=== PATIENT | female | born 1980 | race Caucasian/White ===

== ENCOUNTER 2021-01-13 08:35 | Emergency (ER) | payer BC ==
[2021-01-13 08:46] VITALS: BP 131/80
[2021-01-13] MEDS ORDERED: ORPHENADRINE 60 MG/2 ML (NORFLEX) AMP (ED ONLY) IM STA (09:01)
[2021-01-13] MEDS ORDERED: KETOROLAC 60 MG/2 ML VIAL IM STA (09:01)
--- NOTE | 2021-01-13 09:07 | ED Back Pain ---
General Chief Complaint: Back Problems Stated Complaint: LOW BACK PAIN Nursing Triage Note: Patient reports lower back pain for 2-3 weeks, states the pain started after she took down her Halloween decorations. She denies any previous history of back pain. She reports she tripped and fell over her dog earlier this week, which she feels aggravated the pain. She reports the pain was worse today and that she is having muscle spasms as well. Source of Information: Patient History of Present Illness Date Seen by Provider: Jan 13, 2021 Time Seen by Provider: 08:39 Initial Comments 40-year-old female presenting with complaints of low back pain and muscle spasms across her low back. She states this initially started a few weeks ago and she thinks she may have pulled or strained something when taking a Halloween decorations. She denied any history of any prior injuries or problems with her back. She had improvement in her symptoms by taking anti-inflammatories and using avar-tqt-kizspzn pain patches. However this last week her pain had come back and gotten worse throughout the week. She also had tripped and fell over her dog at the beginning of the week. When this happened she did fall back and hit her back on the concrete porch. She denies any numbness or tingling into her legs. She has had no weakness in her legs. She denies any pain or burning with urination. She has had no loss of control of her bowel or bladder. She does have increased pain with trying to lift her legs when she is laying down. She reports this morning it took her over 20 minutes to get up out of bed because her back was hurting so much. She had made her arms fall asleep and go numb overnight because of laying on them with trying to get a position where her back was not hurting. She had not seen her regular provider during her episodes of pain and she initially thought it was a pulled muscle and might get better. And it did get better with her bisd-dks-rofpueg treatment until this last week and the holiday prevented her from being able to be seen. Today with it being so bad that she had difficulty getting out of bed she decided she needed to be evaluated to see what else might be causing her to have such severe pain. Location: Lumbar Spine, Paraspinous Muscles Timing/Duration: Getting Worse Severity: Severe Pain/Injury Location: Back (across her low back and lumbar area) Radiation: Buttocks (left more than right) Method of Injury: Unknown (no specific injury initially, but was taking down Halloween decorations at beginning of the month when pain started. Then had fall when tripped over her dog a week ago when the pain started to worsen again, after it had improved with OTC treatment) Modifying Factors: Improves With Cold Therapy; Worse With Movement; Improves With Pain Medication, Improves With Rest Associated Symptoms: muscle spasms; No fever, No weakness, No numbness in legs/feet, No tingling in legs/feet, No sensory/motor loss; lower back pain; No loss of bladder control, No loss of bowel control Allergies and Home Medications Allergies Coded Allergies: morphine (Verified Allergy, Unknown, 01/13/21) Patient Home Medication List Home Medication List Reviewed: Yes Hydrocodone/Acetaminophen (Hydrocodone-Acetamin 5-325 mg) 1 Each Tablet, 1 TAB PO Q4H PRN for PAIN-SEVERE (8-10) Prescribed by: JEISON LOPEZ on 01/13/21 0957 Methocarbamol (Methocarbamol) 750 Mg Tablet, 1,500 MG PO TID PRN for MUSCLE SPASMS Prescribed by: JEISON LOPEZ on 01/13/21 0957 Prednisone (Prednisone) 20 Mg Tab, 40 MG PO DAILY Prescribed by: JEISON LOPEZ on 01/13/21 0957 Review of Systems Constitutional: No chills, No fever EENTM: no symptoms reported Respiratory: no symptoms reported Cardiovascular: no symptoms reported Gastrointestinal: no symptoms reported Genitourinary: see HPI Musculoskeletal: see HPI Skin: no symptoms reported Psychiatric/Neurological: See HPI Past Lfuufsi-Kbhfuh-Vhnnua Hx Patient Social History Tobacco Use?: No Past Medical History Surgeries: Yes Section Respiratory: No Cardiac: No Neurological: No Psychosocial: Yes Depression Physical Exam Vital Signs Vital Signs - First Documented 01/13/21 08:46 Temp 36.7 Pulse 105 Resp 16 B/P (MAP) 131/80 (97) Pulse Ox 100 O2 Delivery Room Air Capillary Refill : Less Than 3 Seconds Height, Weight, BMI Height: '" Weight: lbs. oz. kg; BMI Method: General Appearance: WD/WN, Mild Distress HEENT: PERRL/EOMI, Pharynx Normal Neck: Full Range of Motion, Normal Inspection, Non Tender, Supple Cardiovascular: Regular Rate, Rhythm, Normal Peripheral Pulses Respiratory: Chest Non Tender, Lungs Clear, Normal Breath Sounds, No Accessory Muscle Use, No Respiratory Distress Gastrointestinal: Normal Bowel Sounds, No Pulsatile Mass, Non Tender, Soft Back: No CVA Tenderness, Muscle Spasm (low lumbar spine bilaterally left greater than right), Vertebral Tenderness (low lumbar spine, no step off or crepitus), Other (pain with SLR right side at 45 degrees, improved with knee flexion. pain with SLR left side at 30 degrees, no improvement with knee flexion) Extremity: Normal Capillary Refill, Normal Inspection, No Pedal Edema Neurologic/Psychiatric: Alert, Oriented x3, No Motor/Sensory Deficits, single resource boss II- XII Norm as Tested, Other (DTR symmetrical 2/4 patellar and achilles bilaterally) Skin: Normal Color, Warm/Dry Progress/Results/Core Measures Results/Orders My Orders Orders - JEISON LOPEZ MD Ketorolac Injection (Toradol Injection) (01/13/21 09:01) Orphenadrine Inj (Ed Only) (Norflex Inje (01/13/21 09:01) Lumbar Spine 2 Or 3 View (01/13/21 09:21) Vital Signs/I&O 01/13/21 08:46 Temp 36.7 Pulse 105 Resp 16 B/P (MAP) 131/80 (97) Pulse Ox 100 O2 Delivery Room Air Blood Pressure Mean: 97 Progress Progress Note #1: Progress Note Will obtain x-rays of the lumbar spine to evaluate alignment and look for compression fractures. With her having spasms in the muscles and pain across the low back will try a Toradol shot and Norflex shot to help with muscle spasm and inflammation and pain. Patient does have prescriptions for Percocet and a Medrol Dosepak that she is to start Thursday when she goes to see Dr. Nguyen in [place] for oral surgery. Counseled on being careful with use of muscle relaxers at the same time as narcotics as they will increase the sedation effect. Depending on the imaging studies, could start steroids for next 2 days until she starts the Medrol Dosepak from oral surgeon. Prescribe muscle relaxer and narcotic pain medicine to help with severe pain until she starts medicines from Oral surgeon. Advised she may need physical therapy prescribed by her pcp or follow up for continued pain and problems. Progress Note #2: Time: 09:46 Progress Note Xrays of lumbar spine do not show any acute compression fracture or alignment issue. Will proceed with muscle relaxer to help with spasms, steroids for 2 days until she starts her Medrol Dosepak. Use narcotic for severe pain and to help her rest. Continue with the Salonpas patches that she has been using. Follow- up with her regular provider this week as well about her pain as they may need to physical therapy or additional imaging if she is not having improvement. Diagnostic Imaging Diagonstic Imaging: Xray Plain Films/CT/US/NM/MRI: other (lumbar spine) Comments NAME: DAISY ASH MED REC#: [id number] PT STATUS: REG ER : 1980 PHYSICIAN: JEISON LOPEZ MD ADMIT DATE: 01/13/21/ER FS Draft Date of Exam:01/13/21 LUMBAR SPINE 2 OR 3 VIEW EXAMINATION: Lumbosacral spine 2 or 3 views HISTORY: low back pain with spasm, radiation left buttock>right buttock COMPARISON: None available. FINDINGS: Normal height and alignment of the vertebral bodies is noted with no subluxations or fractures appreciated. Intervertebral disc spaces appear preserved. Soft tissues unremarkable. IMPRESSION: No acute process. Dictated on workstation # [id number] Dict: 01/13/2141 Trans: 01/13/21 0943 [facility] [id number] Interpreted by: GERSON SALINAS MD Electronically signed by: Reviewed: Reviewed by Me Departure Impression Primary Impression: Acute myofascial strain of lumbar region Qualified Codes: S39.012A - Strain of muscle, fascia and tendon of lower back, initial encounter Additional Impression: Acute lumbar back pain Qualified Codes: M54.50 - Low back pain, unspecified Disposition: 01 HOME, SELF-CARE Condition: Stable Departure-Patient Inst. Decision time for Depature: 09:53 Referrals: RAY SPENCER MD (PCP) Primary Care Physician Patient Instructions: Opioids for Short-Term Treatment of Pain ED, Muscle Strain ED, Low Back Pain ED Add. Discharge Instructions: You may try alternating cold and heat to the low back and muscles to help with spasms and inflammation. Continue with pain patches such as SalonPas to help with your pain as well. Use the muscle relaxer to help with spasms and inflammation of the muscles in your back. You would not want to take this the night before your surgery procedure as it may make you too sedated along with the pain medicine and diazepam you will be taking. Muscle relaxers taken with a narcotic can cause increased sedation so if it is making you too sleepy and sedated you may want to take them at separate times and be aware of the fact they will make you more sleepy and groggy. Follow up with your regular provider this week about your symptoms. If you are not having improvement they may want to order additional imaging or set you up for physical therapy to help with your back pain. All discharge instructions reviewed with patient and/or family. Voiced understanding. Scripts Methocarbamol (Methocarbamol) 750 Mg Tablet 1500 MG PO TID PRN for MUSCLE SPASMS for 7 Days, #42 TAB 0 Refills Prov: JEISON LOPEZ MD 01/13/21 Hydrocodone/Acetaminophen (Hydrocodone-Acetamin 5-325 mg) 1 Each Tablet 1 TAB PO Q4H PRN for PAIN-SEVERE (8-10) for 2 Days, #12 TAB 0 Refills Prov: JEISON LOPEZ MD 01/13/21 Prednisone (Prednisone) 20 Mg Tab 40 MG PO DAILY for Back Pain for 3 Days, #6 TAB 0 Refills Prov: JEISON LOPEZ MD 01/13/21 JEISON LOPEZ MD Jan 13, 2021 09:07
--- NOTE | 2021-01-13 09:44 | Diagnostic Imaging Report ---
EXAMINATION: Lumbosacral spine 2 or 3 views HISTORY: low back pain with spasm, radiation left buttock>right buttock COMPARISON: None available. FINDINGS: Normal height and alignment of the vertebral bodies is noted with no subluxations or fractures appreciated. Intervertebral disc spaces appear preserved. Soft tissues unremarkable. IMPRESSION: No acute process. Dictated by: Dictated on workstation # [id number]
[2021-01-13] MEDS ORDERED: METH-732 PO (09:57)
[2021-01-13] MEDS ORDERED: PRD20T PO (09:57)
[2021-01-13] MEDS ORDERED: ACHD5005 PO (09:57)
== END 2021-01-13 09:59 | disposition home or self-care (01) ==
LOC: ER FS 08:39
DX: S39.012A Strain of muscle, fascia and tendon of lower back, initial encounter (principal); W22.8XXA Striking against or struck by other objects, initial encounter
CPT/HCPCS: 72100